=== PATIENT | female | born 1995 | race Caucasian/White ===

== ENCOUNTER 2019-06-22 08:27 | Outpatient (CLI) | payer OTHER ==
[~2019-06-22] VITALS: Ht 165.1 cm; Wt 77.2 kg
[2019-06-22 08:45] VITALS: BP 120/63
--- NOTE | 2019-06-22 09:48 | IPNPDOC ---
Text Note Date of Service The patient was seen on 06/22/19. NOTE Triage Note Gigi is a 23yo with SIUP at approx 23wk who presents for RLQ pain. She states she was bending over last night and had a sudden pain in her right lower abdomen. It went away for a time, but was sore again this morning, so she came in to get it checked. Has had a bit of nausea, but no vomiting. Has not had breakfast yet, but normally doesn't eat breakfast. No fevers/chills. Has not had a bowel movement for several days. No loss of fluid, contractions or bleeding. Feels baby moving. Vitals wnl, afebrile General: WDWN, resting comfortably in bed and conversant Abdomen: soft, benign, slight tender with deep palpation in RLQ but NO rebound/guarding Extremities: no edema of BLE Cat I FHRT with +accels, -decels, mod smitha [place]: no ctx Assessment: Gigi is a 23yo with SIUP at approx 23wk with musculoskeletal pain likely from pulled abdominal muscle vs round ligament. Vitals wnl, benign exam. Reassuring assessment. Plan: -safe for discharge home -increase fiber in diet, Metamucil or miralax as needed to effect BM -tylenol prn pain, warm baths/showers -avoid movements that exacerbate discomfort -keep next routine ob appt at 24wk -return precautions discussed Dr. Cecille Valdes MD VS,Shaw, I+O VSShaw I+O Vital Signs Date Time Temp Pulse Resp B/P (MAP) Pulse Ox O2 Delivery O2 Flow Rate FiO2 06/22/19 08:45 97.7 82 16 120/63 (82) Cecille Valdes MD Jun 22, 2019 09:48
== END 2019-06-22 09:45 | disposition home or self-care (01) ==
LOC: M LDO 08:27
PROVIDERS: ATTEND Obstetrics & Gynecology
DX: O26.892 Other specified pregnancy related conditions, second trimester (principal); R10.31 Right lower quadrant pain; Z3A.23 23 weeks gestation of pregnancy; R11.0 Nausea; O99.612 Diseases of the digestive system complicating pregnancy, second trimester; K59.00 Constipation, unspecified
CPT/HCPCS: G0378; G0463

== ENCOUNTER 2019-06-23 19:02 | Outpatient (CLI) | payer OTHER ==
[~2019-06-23] VITALS: Ht 162.6 cm; Wt 77.5 kg
[2019-06-23 19:23] VITALS: BP 119/70
[2019-06-23 19:48] LABS: APPEARANCE, URINE CLEAR (CLEAR); BACTERIA, URINE AUTO NEGATIVE (NEGATIVE); BILIRUBIN, URINE AUTO NEGATIVE (NEGATIVE); BLOOD, URINE BLOOD NEGATIVE (NEGATIVE); COLOR, URINE STRAW (YELLOW); GLUCOSE, URINE (UA) AUTO NEGATIVE (NEGATIVE); KETONE, URINE AUTO NEGATIVE (NEGATIVE); LEUKOCYTE ESTERASE, URINE AUTO NEGATIVE (NEGATIVE); NITRITE, URINE AUTO NEGATIVE (NEGATIVE); PROTEIN, URINE AUTO NEGATIVE (NEGATIVE); RBC, URINE AUTO 0 /HPF (0-3); SPECIFIC GRAVITY URINE AUTO 1.009 (1.002-1.035); SQUAMOUS EPITHELIAL CELL UR AU 0 /HPF (0-6); UROBILINOGEN, URINE AUTO 0.2 mg/dL (0.0-2.0); WBC, URINE AUTO 4 /HPF (0-3)
--- NOTE | 2019-06-24 20:32 | HPE ---
DATE OF ADMISSION: 06/23/2019 23-year-old 4, para 0, abortus 3, LMP 01/03/2019, EDC 10/19/2019 at 23 weeks of gestation, history of being seen in triage less than 24 hours before with right lower quadrant pain, diagnosed as round ligament or musculoskeletal. She comes today with another complaint and difficulty of painful voiding. PAST HISTORY: 2019, spontaneous 7 weeks. 2017, spontaneous 8 weeks. 2016, spontaneous 7 weeks. Labs are O+, HIV negative, hepatitis negative, RPR negative, rubella immune. Varicella immune. Pap normal. Urine initially showed 100,000 mixed rubina and a redo of her urine for C and S was negative, no bacteria. Gonorrhea and chlamydia were negative. Urine was today was 1009, pH 6 and negative. Blood pressure 119/70, respirations 18, pulse 76, temperature 97.8. On examination, no distress. The patient is appropriate. Symphysis fundus height is 23. Tender in the right lower quadrant. Ultrasound abdominally showed a heart rate of in the 140s, cardiac activity was normal. Baby's arm was pushing on the right lower quadrant area, recreating the pain that she is complaining of and there are multiple jabs that you can see on ultrasound. There is no vaginal loss or bleeding. We explained to her this is positional and that her urine was negative and the baby's activity is normal. She has an appointment 06/29/2019. Encouraged her to keep it. She was discharged undelivered.
== END 2019-06-23 20:30 | disposition home or self-care (01) ==
LOC: M LDO 19:02
PROVIDERS: ATTEND Obstetrics & Gynecology
DX: O26.892 Other specified pregnancy related conditions, second trimester (principal); Z3A.23 23 weeks gestation of pregnancy; R10.2 Pelvic and perineal pain; R11.0 Nausea; O26.22 Pregnancy care for patient with recurrent pregnancy loss, second trimester; O99.612 Diseases of the digestive system complicating pregnancy, second trimester; K59.00 Constipation, unspecified; Z91.013 Allergy to seafood
CPT/HCPCS: 76815; 81001; 87086; G0378; G0463

== ENCOUNTER 2019-07-20 21:50 | Outpatient (CLI) | payer OTHER ==
[~2019-07-20] VITALS: Ht 165.1 cm; Wt 81.9 kg
[2019-07-20 22:13] VITALS: BP 129/78
[2019-07-20] MEDS ORDERED: LR 1,000 ML IV ONE (23:00)
[2019-07-21 00:43] LABS: HEMATOCRIT 32.4 % (36.0-47.0); HEMOGLOBIN 10.9 g/dl (12.0-15.5); MEAN CORPUSCULAR HEMOGLOBIN 31.2 pg (27.0-33.0); MEAN CORPUSCULAR HGB CONC 33.6 g/dl (32.0-36.5); MEAN CORPUSCULAR VOLUME 92.8 fl (80.0-96.0); PLATELET COUNT, AUTOMATED 207 10^3/uL (150-450); RED BLOOD COUNT 3.49 10^6/uL (4.00-5.40); WHITE BLOOD COUNT 11.1 10^3/uL (4.0-10.0)
[2019-07-21 01:03] LABS: BLOOD UREA NITROGEN 7 MG/DL (7-18); CALCIUM LEVEL 8.8 MG/DL (8.5-10.1); CARBON DIOXIDE LEVEL 24 MEQ/L (21-32); CHLORIDE LEVEL 111 MEQ/L (98-107); CREATININE FOR GFR 0.46 MG/DL (0.55-1.30); GLOMERULAR FILTRATION RATE > 60.0 (>60); GLUCOSE, FASTING 81 MG/DL (70-100); POTASSIUM SERUM 3.6 MEQ/L (3.5-5.1); SODIUM LEVEL 142 MEQ/L (136-145)
--- NOTE | 2019-07-21 06:48 | HPE ---
DATE OF ADMISSION: 07/20/2019 HISTORY: 23-year-old, 4, para 0, abortus 3, last menstrual period (LMP) 01/03/2019, estimated date of confinement (EDC) 10/19/2019, at 27 and 2 weeks of gestation has a history of a headache for 5 days, back pain times 3 days, and dizziness today. No loss of fluid. No loss of consciousness. No vaginal bleeding. No spots in her eyes. RISK FACTOR: She had a history Chlamydia, test of cure was negative, three spontaneous abortions in the first trimester LABS: O+, HIV negative, hepatitis negative, RPR negative, rubella immune. Varicella immune. Pap normal. Urine negative. Gonorrhea and chlamydia negative. Blood pressure 118/71, respirations 17, pulse 89, temperature 98.1. Hemoglobin ius at 10.9, hematocrit 32.4. Urine is 1.006, pH is 7, negative leukocyte esterase, negative bacteria. On examination, no distress. Symphysis fundus height is 28 cm. For quadrant bowel sounds are noted. Nontender uterus. Category 1 strip. No contractions, moderate variability, accelerations were noted. Baby is extremely active. Abdominal ultrasound - vertex presenting. Amniotic fluid index (NURYS) was 6.03 quadrant one, 4.46 cm quadrant two, and 2.07 cm quadrant three. Transvaginal examination: The cervix is 3.03 cm. No funneling. Vertex presenting. Active limbs were noted. Plan is to hydrate the patient, discharge the patient with instructions. Her headache when she came in was 10 and now it is 2. Back pain is dull ache. She was concerned about a urinary tract infection (UTI) and labor. As far as the dizziness, she is not drinking enough and her hemoglobin and hematocrit are slightly low. We counseled regarding increasing her fluids, possibly taking night vitamins and vitamins and taking Tylenol for headache. The patient has an appointment at [facility], 07/29/2019, encouraged to keep that appointment. Discharged undelivered. Total duration time was 1 hour.
== END 2019-07-21 01:33 | disposition home or self-care (01) ==
LOC: M LDO 21:50
PROVIDERS: ATTEND Obstetrics & Gynecology
DX: O26.892 Other specified pregnancy related conditions, second trimester (principal); M54.9 Dorsalgia, unspecified; R51 Headache; R42 Dizziness and giddiness; O99.282 Endocrine, nutritional and metabolic diseases complicating pregnancy, second trimester; Z3A.27 27 weeks gestation of pregnancy
CPT/HCPCS: 36415; 59025; 76815; 80048; 81001; 85027; 87086; G0378; G0463

== ENCOUNTER 2019-10-18 05:02 | Inpatient (IN) | payer OTHER ==
[~2019-10-18] VITALS: Ht 165.1 cm; Wt 88.0 kg
[2019-10-18] VITALS (44 sets, daily range): BP systolic 92–145; BP diastolic 54–111
[2019-10-18] MEDS: LR 1,000 ML IV SCH ×3 (07:41→16:24)
--- NOTE | 2019-10-18 07:50 | HPEPDOC ---
Obstetrical History & Physical General Date of Admission Oct 18, 2019 at 07:19 History of Present Illness patient is a 24 yo @ 39+6wks gestation presented to triage with concerns fo r vaginal bleeding. She was checked in triage to be 2cm by nurse. Having painful contractions. denies LOF. Chief Complaint: Contractions, term Information Provided By: Patient Age: 24 : 4 Term: 0 Pre-term: 0 Abortions: 0 Livin Care Care: Good Care Dating Final EDC: Oct 19, 2019 Final EDC for Daily Update: Oct 19, 2019 Past Medical History Past Obstetrical History : Past Obstetrical History: Multigravida (sab x 3) Past Medical History Medical History denies Surgical History: Denies/None Social History Marital Status: Family situation: Spouse/partner home * Smoker: non-smoker Alcohol: Denies Drugs: denies Imunizations Tdap status: current Influenza Status: current Allergies Coded Allergies: Shrimp (Verified Allergy, Intermediate, HIVES OVER ENTIRE TORSO, 06/22/19) diphenhydramine (Verified Allergy, Intermediate, WHEEZING, 07/20/19) WHEEZING acetaminophen (Verified Adverse Reaction, Intermediate, HEADACHE, 07/20/19) codeine (Verified Adverse Reaction, Intermediate, HEADACHE, 07/20/19) Medications No Active Prescriptions or Reported Meds Physical Examination Physical Examination GENERAL: Alert and oriented times three. BREAST: . ABDOMEN: Gravid and non-tender to touch. FETUS: fetus is vertex (VTX) by Kevin. HEART RATE: Regular rate and rhythm. LUNGS: Clear to auscultation (CTA). EXTREMITIES: No edema/erythema/tenderness EFW: 3200gm Laboratory Data 24H LABS Laboratory Tests 2 10/18/19 07:23: Serology Scanned Report Hepatitis B Testing Pertinent Laboratoy Data Blood Type: O+ RBC Antibody Screen: Negative HIV: Negative Hepatitis B: Negative Rapid Plasma Reagin: Nonreactive Rubella: Nonreactive Chlamydia/Gonorrhea: Negative Group B Streptococcus: Negative Anatomy Ultrasound Placenta Location: Posterior Normal Anatomy: Yes Placenta Previa: No Vaginal Examination Presentation: Cephalic presentation Position: Vertex (occiput) Assessment Heart Rate (FHR): 130 Variability: Moderate Accelerations: Positive Decelerations: Prolonged Tocometer Contractions: Yes Frequency: every 1-5 min. Assessment/Plan Assessment patient is a 24 yo @ 39+6wks gestation with non reactive tracing while in triage. Admit to monitor and augment labor as needed. Patient counseled for pitocin to augment her labor course. External and internal monitor explained. Discussed risks of infection, bleeding requiring blood transfusion, emergent section, use of forceps and vacuums and associated risks to mother and baby, episiotomy discussed with patient. Plan Admit and orient. Security Alarm Installer and consent. Diet: clears Group B Streptococcus (GBS) [negative]. Labs and intravenous (IV) per unit protocol. augment labor with pit pending status. KELSI HITCHCOCK DO Oct 18, 2019 07:44
[2019-10-18 08:04] LABS: HEMATOCRIT 32.6 % (36.0-47.0); MEAN CORPUSCULAR HGB CONC 33.7 g/dl (32.0-36.5); MEAN CORPUSCULAR VOLUME 88.8 fl (80.0-96.0); PLATELET COUNT, AUTOMATED 207 10^3/uL (150-450); RED BLOOD COUNT 3.67 10^6/uL (4.00-5.40); WHITE BLOOD COUNT 9.3 10^3/uL (4.0-10.0)
[2019-10-18] MEDS ORDERED: MAPA500T2 PO (08:19)
[2019-10-18] MEDS ORDERED: OXYTOCIN DRIP 30 UNITS in IV 1 EA IV SCH (13:30)
[2019-10-18] MEDS ORDERED: FENTANYL 2MCG/ML ROPIVACAINE 0.2% IN 0.9% NACL 100ML IVBAG As Ordered ONE (15:10)
[2019-10-18] MEDS ORDERED: EPIDURAL/PCA KEYS XX PRN (16:45)
[2019-10-18] MEDS ORDERED: EPIDURAL COMMENT XX SCH (16:45)
[2019-10-18] MEDS ORDERED: ONDANSETRON 4MG/2ML VIAL IV PRN (16:45)
[2019-10-18] MEDS ORDERED: NALOXONE INJ 0.4MG/1ML VIAL (J2310 PER 1MG) IV PRN (16:45)
[2019-10-18] MEDS ORDERED: LACTATED RINGER'S 1000 ML IV PRN (16:45)
[2019-10-18] MEDS ORDERED: REFRIGERATOR IV KEYS XX PRN (16:45)
[2019-10-18] MEDS: FENTANYL/ROPIVACAINE/NACL BAG 100 ML EPIDURAL SCH ×2 (16:50→23:53)
[2019-10-18] MEDS: ePHEDrine SULFATE 25 MG/5 ML(5MG/ML) SYRINGE IV PRN ×2 (18:35→18:38)
--- NOTE | 2019-10-18 20:24 | IPNPDOC ---
Obstetrical Progress Note Date of Service Oct 18, 2019 Subjective [place] of Care S: Received report from Dr. Ventura and assumed care of Gigi, mariana 24yo at 39+6wks admitted this morning for non-reactive tracing with deceleration in triage. She was admitted and IOL started; pitocin was started at 1327 this afternoon and is currently on 4mu/min. She is comfortable with an epidural in place, only feeling slight pressure with contractions. She denies any concerns at this time. Objective O: VSS, afebrile, normotensive FHR 125, moderate variability, + accels, no recent decelerations noted CTX on TOCO: q2-3 minutes VE: 7/90/0, bloody show present Vital Signs Date Time Temp Pulse Resp B/P (MAP) Pulse Ox O2 Delivery O2 Flow Rate FiO2 10/18/19 19:28 97.2 76 16 127/66 (86) 10/18/19 16:08 99 Room Air Assessment Heart Rate Tracing: Category I Sterile Vaginal Examination Postion/Presentation: Cephalic presentation Assessment and Plan Status: Reassuring Group B Streptococcus: Negative Anticipate: Vaginal Delivery Additional Comments A: 24yo at 39+6wks, active labor after IOL with pitocin, Category I FHT at this time. P: CEFM x2 Close monitoring of maternal/ status Continue pitocin per low dose protocol Interventions PRN if tracing other than Category I Anticipate Consult with OB if indicated JANES NOBLE CNM Oct 18, 2019 20:24
[2019-10-19] VITALS (12 sets, daily range): BP systolic 111–147; BP diastolic 58–89
--- NOTE | 2019-10-19 02:22 | DNPDOC ---
[facility] Delivery Note Delivery Note DATE OF DELIVERY: 10/19/2019 at 0150 PREDELIVERY DIAGNOSIS: 40+0 weeks gestation and labor. POST DELIVERY DIAGNOSIS: Delivered. PROCEDURE: PHARMACEUTICAL OFFICER: FELIX Noble ANESTHESIA: Epidural ESTIMATED BLOOD LOSS: 200 mL. FINDINGS: 6 pounds 12 ounces female , Score 9/9, nuchal cord times 1, loose and easily reduced. DELIVERY SUMMARY: Gigi is a 24yo G4 now P1031 who was admitted for IOL d/t Category II tracing. She progressed to C/C/+1, labored down for 2 hours, then proceeded to start pushing. She effectively pushed to deliver a viable female infant over a protected perineum. head delivered AKILAH and restituted to LOT. Loose nuchal x1 reduced at this time. Right anterior shoulder delivered with ease, followed by left posterior shoulder, then remainder of body delivered to maternal abdomen where she was dried and stimulated. Once cord stopped pulsing, clamped x2 and cut by FOB. Cord blood collected for type and esther. Placenta delivered spontaneously via Dennis mechanism, appeared intact, 3VC. Pitocin bolus started and fundus firm; EBL 200mL. Upon inspection of vagina, cervix, and perineum, small 1st degree perineal laceration and right labial abrasion noted, both repaired with 3-0 vicryl rapid and hemostasis achieved. Family bonding well, anticipate uncomplicated PP course. JANES NOBLE CNM Oct 19, 2019 02:22
[2019-10-19] MEDS ORDERED: ACETAMINOPHEN 500 MG TAB PO PRN (02:30)
[2019-10-19] MEDS ORDERED: DOCUSATE SODIUM 100MG CAPSULE PO PRN (02:30)
[2019-10-19] MEDS ORDERED: ACETAMINOPHEN TAB 650MG DOSE (2X325MG) PO PRN (02:30)
[2019-10-19] MEDS ORDERED: DIBUCAINE 1% OINTMENT 30GM TOP PRN (02:30)
[2019-10-19] MEDS ORDERED: IBUPROFEN 600MG TAB PO PRN (02:30)
[2019-10-19] MEDS: PRENATAL VITAMINS CHEWABLE TABLET PO SCH (09:00)
[2019-10-19] MEDS: IBUPROFEN 800 MG TAB PO PRN (17:17)
[2019-10-20 06:00] VITALS: BP 111/69
--- NOTE | 2019-10-20 07:05 | IPNPDOC ---
Progress Note Date of Service: Oct 20, 2019 Day#: 1 Progress Note SUBJECT: Patient is a 24 yo s/p ppd #1. She has been ambulating, sylvain ding spontaneously without issue and tolerating regular diet. Breast feeding and formula feeding. Reports lochia is like a normal period. Having lower back pain. undecided on contraception. OBJECTIVE: VITAL SIGNS: Within normal limits, afebrile. Alert and oriented times three. Abdomen: Fundus firm at U-2. Soft, NTTP. back: moving freely, nttp le: no edema/erythema/tenderness A/P ppd #1, doing well. encouraged bf. contraceptive counseling. routine ppc. anticipate d/c home tomorrow. DO Audrey VS, I&O, 24H, Fishbone Vital Signs/I&O Vital Signs Date Time Temp Pulse Resp B/P (MAP) Pulse Ox O2 Delivery O2 Flow Rate FiO2 10/20/19 06:00 97.3 86 18 111/69 (83) 10/18/19 16:08 99 Room Air KELSI HITCHCOCK DO Oct 20, 2019 07:05
[2019-10-20] MEDS: PRENATAL VITAMINS CHEWABLE TABLET PO SCH (08:15)
[2019-10-20] MEDS: IBUPROFEN 800 MG TAB PO PRN ×2 (08:31→23:29)
[2019-10-20 18:00] VITALS: BP 112/62
[2019-10-21 05:35] VITALS: BP 106/65
[2019-10-21] MEDS ORDERED: IBUP80TA PO (07:25)
[2019-10-21] MEDS ORDERED: DOCU100C16 PO (07:25)
[2019-10-21] MEDS ORDERED: DIBU10OI TOP (07:25)
[2019-10-21] MEDS: PRENATAL VITAMINS CHEWABLE TABLET PO SCH (08:22)
[2019-10-21] MEDS: IBUPROFEN 800 MG TAB PO PRN (08:23)
--- NOTE | 2019-10-23 21:51 | DSES ---
DATE OF ADMISSION: 10/18/2019 DATE OF DISCHARGE: 10/21/2019 A 24-year-old 4, now para 1, admitted with contractions at 39 and 6 weeks of gestation with a nonreassuring heart. She had a spontaneous vaginal delivery of a live- female infant, 6 pounds 12 ounces, scores of 9 and 9 at one and five minutes, respectfully. Cord around neck times one. Had an epidural in place. Had a first-degree repaired in the usual fashion. On her first day, the rest of the examination unremarkable. Normocephalic, atraumatic. Neck: Full range of motion. Pupils equal and reactive to light. Distal pulses are symmetric. No evident deep vein thrombosis (DVT), pulmonary embolism (PE), or superficial phlebitis. Chest is clear bilaterally to bases. No wheezes or rhonchi. No costovertebral angle (CVA) tenderness. Abdomen soft. Uterus 2 below. Lochia is moderate. Four-quadrant bowel sounds are noted. Perineum is healing. No rashes, lesions, or pruritus. No arthralgia, myalgia. No complaint of joint pain. No complaint cough, wheeze, shortness breath, or dyspnea on exertional. No nausea, vomiting, diarrhea, or constipation. Her admitting hemoglobin 11.0, hematocrit 32.6, and platelets 207. Her discharge vital signs: Blood pressure was 106/65, respirations 15, pulse 69, temperature 97.2. In summary, we have a term gestation, delivered a live female infant. Discharged improved. manager support services her medications at [place] at the pharmacy and has a 6-week checkup at [facility]. All questions were answered. A 20-minute discussion.
== END 2019-10-21 18:00 | disposition home or self-care (01) | DRG 807 ==
LOC: EEVIPCON 05:02 → M LDO 05:02 → M LDI 07:19 → M OBS 10-19 04:22
PROVIDERS: ADMIT Obstetrics & Gynecology; ATTEND Obstetrics & Gynecology
PROC: 10E0XZZ Delivery of Products of Conception, External Approach (ICD-10-PCS; principal; 2019-10-19)
PROC: 0HQ9XZZ Repair Perineum Skin, External Approach (ICD-10-PCS; 2019-10-19)
DX: O69.81X0 Labor and delivery complicated by cord around neck, without compression, not applicable or unspecified (principal); Z37.0 Single live birth; Z3A.40 40 weeks gestation of pregnancy; O48.0 Post-term pregnancy; O70.0 First degree perineal laceration during delivery

== ENCOUNTER 2019-10-22 15:55 | Emergency (ER) | payer OTHER ==
[~2019-10-22] VITALS: Ht 165.1 cm; Wt 82.9 kg
[~2019-10-22 15:55] MED LIST: DIBU10OI TOP; DOCU100C16 PO; IBUP80TA PO; MAPA500T2 PO
[2019-10-22] MEDS ORDERED: NS 1,000 ML IV ONE (16:30)
--- NOTE | 2019-10-22 16:49 | REP ---
Clinical: Acute chest pain . Comparison: None . Technique: PA and lateral. Findings: The mediastinum and cardiac silhouette are normal. The lung morgan are clear and without acute consolidation, effusion, or pneumothorax. The skeletal structures are intact and normal. Impression: 1. No acute cardiopulmonary process. Electronically Signed by Jori Woodson MD 10/22/2019 04:40 P
[2019-10-22 17:01] LABS: BASO % 0.3 % (0.0-1.0); EOS # 0.1 10^3/uL (0.0-0.5); EOS % 1.2 % (0.0-3.0); HEMATOCRIT 31.5 % (36.0-47.0); HEMOGLOBIN 10.8 g/dl (12.0-15.5); LYMPH # 1.7 10^3/uL (1.5-5.0); LYMPH % 19.6 % (24.0-44.0); MEAN CORPUSCULAR HEMOGLOBIN 30.9 pg (27.0-33.0); MEAN CORPUSCULAR HGB CONC 34.3 g/dl (32.0-36.5); MEAN CORPUSCULAR VOLUME 90.3 fl (80.0-96.0); MONO # 0.4 10^3/uL (0.0-0.8); MONO % 4.9 % (0.0-5.0); NEUTROPHILS # 6.5 10^3/uL (1.5-8.5); NEUTROPHILS % 73.4 % (36.0-66.0); PLATELET COUNT, AUTOMATED 203 10^3/uL (150-450); RED BLOOD COUNT 3.49 10^6/uL (4.00-5.40); WHITE BLOOD COUNT 8.9 10^3/uL (4.0-10.0)
[2019-10-22] MEDS ORDERED: ISOVUE-370 76% 100ML VIAL As Ordered ONE (17:01)
[2019-10-22 17:33] LABS: ALBUMIN 2.6 GM/DL (3.2-5.2); ALT/SGPT 26 U/L (12-78); BILIRUBIN,DIRECT < 0.1 MG/DL (0.0-0.2); BILIRUBIN,TOTAL 0.3 MG/DL (0.2-1.0); CK-MB VALUE MASS 3.2 NG/ML (<3.6); CPK CREATINE PHOSPHOKINASE 318 U/L (26-192); LIPASE 105 U/L (73-393); MB/CK RELATIVE INDEX 1.01 (< OR =4); TROPONIN I < 0.02 NG/ML (< 0.10)
--- NOTE | 2019-10-22 17:35 | REPVR ---
PROCEDURE INFORMATION: Exam: CT Angiography Chest With Contrast Exam date and time: 10/22/2019 5:18 PM Age: 24 years old Clinical indication: Shortness of breath; Additional info: Shortness of breath, 3 days post RO pe TECHNIQUE: Imaging protocol: Computed tomographic angiography of the chest with intravenous contrast. 3D rendering: MIP and/or 3D reconstructed images were created by the technologist. Radiation optimization: All CT scans at this facility use at least one of these dose optimization techniques: automated exposure control; mA and/or kV adjustment per patient size (includes targeted exams where dose is matched to clinical indication); or iterative reconstruction. Contrast material: ISOVUE 370; Contrast volume: 75 ml; Contrast route: INTRAVENOUS (IV); COMPARISON: CR Chest, 2 view PA, Lat 10/22/2019 4:30 PM FINDINGS: Pulmonary arteries: Normal. No pulmonary emboli. Aorta: Unremarkable. No aortic aneurysm. No aortic dissection. Lungs: Unremarkable. No consolidation. No masses. Pleural space: Unremarkable. No pneumothorax. No pleural effusion. Heart: Unremarkable. No cardiomegaly. No pericardial effusion. Lymph nodes: Unremarkable. No enlarged lymph nodes. Bones/joints: Unremarkable. No acute fracture. Soft tissues: Unremarkable. IMPRESSION: No pulmonary embolism. Electronically signed by: Saurabh Fraser On 10/22/2019 17:35:34 PM
[2019-10-22 18:15] VITALS: BP 109/72
--- NOTE | 2019-10-23 16:18 | ECGEPIP ---
[facility] - ED Test Date: 2019-10-22 Pat Name: NOE TAVAREZ Department: Room: - Gender: Female Toxics Program Officer: malina : 1995 Requested By: LAURYN Calderon PA-C Order Number: [id number] Reading MD: Alisa Conde Measurements Intervals [place] Rate: 63 P: 34 NV: 154 QRS: 37 QRSD: 88 T: 32 QT: 364 QTc: 375 Interpretive Statements SINUS RHYTHM WITH SINUS ARRHYTHMIA NO PRIOR Electronically Signed on 10-23-2019 16:17:48 EDT by Alisa Conde
== END 2019-10-22 18:39 | disposition home or self-care (01) ==
LOC: M ED 15:55
DX: M94.0 Chondrocostal junction syndrome [Tietze] (principal); R07.89 Other chest pain; Z87.01 Personal history of pneumonia (recurrent); Z88.6 Allergy status to analgesic agent; Z88.8 Allergy status to other drugs, medicaments and biological substances; Z91.013 Allergy to seafood
CPT/HCPCS: 36415; 71046; 71275; 80047; 80076; 82550; 82553; 83690; 84484; 85025; 93005; 93041; 94760; 96360; 99284; Q9967

== ENCOUNTER → 2020-03-13 | Outpatient (CLI) | payer OTHER ==
--- NOTE | 2020-03-13 12:26 | REP ---
INDICATION: LEFT NIPPLE BLOODY DISCHARGE AND LUMP; LEFT NIPPLE BLOODY DISCHARGE/LUMP. COMPARISON: None TECHNIQUE: Mammographic images left breast performed with tomosynthesis. Images are obtained in the MLO, mL and CC projections. Whole left breast ultrasound performed. FINDINGS: Heterogeneously dense fibroglandular tissue is present throughout the left breast somewhat limiting the sensitivity of the mammogram. Volpara breast density is C. I see no mass or architectural distortion. No clustered microcalcifications are seen. Whole left breast ultrasound is performed demonstrating no cystic or solid nodule. IMPRESSION: BIRADS/ACR category 1 negative breast mammogram and ultrasound. No mass is seen mammographically or sonographically. The patient has not had a clinical breast exam in over 1 year. There is a family history of breast cancer in paternal grandmother, ChristyJm lifetime risk of breast cancer 16.6%. This mammogram was interpreted with the aid of an FDA-approved computer-aided detection system. The patient letter being requested is M2. RECOMMENDATION: Given the history of nodule on the tip of the left nipple and a single episode of bloody nipple discharge 1 month ago, recommend clinical correlation and follow-up. If the episode of bloody discharge is deemed clinically suspicious for breast cancer risk, then breast MRI would be recommended. <Electronically signed by Salvador Rasmussen > 03/13/20 [id number]
== END ==
LOC: M WHC 10:09
PROVIDERS: ATTEND Nurse Practitioner Primary Care
DX: N64.52 Nipple discharge (principal); N63.20 Unspecified lump in the left breast, unspecified quadrant
CPT/HCPCS: 76642; 77065; G0279

== ENCOUNTER 2020-03-19 23:00 | Emergency (ER) | payer OTHER ==
[~2020-03-19] VITALS: Ht 162.6 cm; Wt 87.4 kg
[2020-03-20 01:48] LABS: BASO % 0.2 % (0.0-1.0); EOS # 0.1 10^3/uL (0.0-0.5); EOS % 0.7 % (0.0-3.0); HEMATOCRIT 39.9 % (36.0-47.0); HEMOGLOBIN 13.2 g/dl (12.0-15.5); LYMPH # 2.5 10^3/uL (1.5-5.0); LYMPH % 24.6 % (24.0-44.0); MEAN CORPUSCULAR HEMOGLOBIN 28.3 pg (27.0-33.0); MEAN CORPUSCULAR HGB CONC 33.1 g/dl (32.0-36.5); MEAN CORPUSCULAR VOLUME 85.6 fl (80.0-96.0); MONO # 0.6 10^3/uL (0.0-0.8); MONO % 5.9 % (0.0-5.0); NEUTROPHILS # 6.9 10^3/uL (1.5-8.5); NEUTROPHILS % 68.2 % (36.0-66.0); PLATELET COUNT, AUTOMATED 237 10^3/uL (150-450); RED BLOOD COUNT 4.66 10^6/uL (4.00-5.40)
[2020-03-20 01:53] LABS: URINE PREG TEST NEGATIVE (NEGATIVE)
[2020-03-20 02:20] LABS: ALT/SGPT 26 U/L (12-78); BILIRUBIN,DIRECT < 0.1 MG/DL (0.0-0.2); BILIRUBIN,TOTAL 0.2 MG/DL (0.2-1.0); BLOOD UREA NITROGEN 13 MG/DL (7-18); CALCIUM LEVEL 9.5 MG/DL (8.5-10.1); CARBON DIOXIDE LEVEL 25 MEQ/L (21-32); CHLORIDE LEVEL 106 MEQ/L (98-107); CREATININE FOR GFR 0.69 MG/DL (0.55-1.30); GLOMERULAR FILTRATION RATE > 60.0 (>60); GLUCOSE, FASTING 104 MG/DL (70-100); POTASSIUM SERUM 3.9 MEQ/L (3.5-5.1); SODIUM LEVEL 140 MEQ/L (136-145); TOTAL PROTEIN 7.1 GM/DL (6.4-8.2)
[2020-03-20] MEDS ORDERED: AZITHROMYCIN 250MG TABLET PO ONE (03:15)
[2020-03-20] MEDS ORDERED: cefTRIAXone SOD 250MG VIAL (J0696 PER 250MG) IM ONE (03:15)
[2020-03-20] MEDS ORDERED: IBUPROFEN 800 MG TAB PO ONE (03:15)
[2020-03-20] MEDS ORDERED: LIDOCAINE 1% SDV 5ML VIAL DILUENT ONE (03:15)
[2020-03-20] MEDS ORDERED: METR1GEL7 PV (03:57)
[2020-03-20] MEDS ORDERED: IBUP-1022 PO (03:57)
[2020-03-20 04:11] LABS: CHLAMYDIA DNA AMPLIFICATION NEGATIVE (NEGATIVE); GC DNA AMPLIFICATION NEGATIVE (NEGATIVE)
[2020-03-20 05:02] VITALS: BP 124/67
== END 2020-03-20 05:00 | disposition home or self-care (01) ==
LOC: M ED 23:00
DX: N72 Inflammatory disease of cervix uteri (principal); Z97.5 Presence of (intrauterine) contraceptive device; Z98.890 Other specified postprocedural states
CPT/HCPCS: 80048; 80076; 81001; 84703; 85025; 87210; 87491; 87591; 96372; 99284; J0696

== ENCOUNTER → 2020-07-16 | Outpatient (CLI) | payer OTHER ==
[~2020-07-16] MED LIST changes: +IBUP-1022 PO; +METR1GEL7 PV
--- NOTE | 2020-07-16 17:25 | REP ---
INDICATION: LT BREAST PAIN,BLOODY NIPPLE DISCHARGE AND LUMP. COMPARISON: Comparison left breast sonography February. Comparison mammography March 13, 2020.. TECHNIQUE: Whole breast ultrasound is performed left breast. FINDINGS: Heterogeneous fibroglandular background echotexture is again noted. No mass, cyst, ductal dilation, or architectural distortion is seen. IMPRESSION: BI-RADS category 0 incomplete imaging. Consider breast MRI scanning for further evaluation of this patient's persistent bloody nipple discharge. Nipple cytology could also be performed. This patient's estimated Tyrer-Cuzick lifetime risk assessment for breast cancer is 16.6% <Electronically signed by Campbell Marte > 07/16/20 [id number]
== END ==
LOC: M WHC 14:33
PROVIDERS: ATTEND Obstetrics & Gynecology
DX: N64.4 Mastodynia (principal)